=== PATIENT | male | born 1950 | race Caucasian/White ===

== ENCOUNTER → 2018-10-15 | Outpatient (REF) | payer MEDICARE, OTHER ==
[~2018-10-15] MED LIST: AMLODIPINE10 MG PO; AMLODIPINE5 MG OR; AMLODIPINE5 MG PO; CELEBREX200 MG OR; DIOVAN160 MG OR; ELAVIL10 MG PO; ENALAPR/HCTZ1 TA1 PO; ENALAPR/HCTZ1 TAB OR; ENALAPR/HCTZ1 TAB PO; ENALAPRIL MALEA20 MG PO; HUMULIN N1 ML SC; HYDROCHLORO25 MG/TAB PO; NEURONTIN300 MG PO; NOVOLIN SC; OMEPRAZOLE20 MG OR; PRILOSEC20 MG/CAP PO; SIMVASTATIN20 MG PO; TRAZODONE50 MG PO; VASERETIC1 TAB PO
[2018-10-15 09:39] LABS: HEMATOCRIT 47.7 % (39.0-50.0); IMMATURE GRANULOCYTES 0.7 % (0.0-5.0); MEAN CORPUSCULAR HGB 30.5 pG CALC (26.0-32.0); MEAN CORPUSCULAR HGB CONC 33.5 g/L CALC (32.0-36.0); NEUT# 5.25 thou/uL (1.82-7.42); RED BLOOD COUNT 5.24 mill/uL (4.70-6.10); RED CELL DISTRI WIDTH 12.5 % (11.5-15.5)
[2018-10-15 09:55] LABS: ALBUMIN 4.2 g/dL (3.2-5.0); ALKALINE PHOSPHATASE 123 u/l (38-126); ANION GAP 15 (6-22 (CALC)); BILIRUBIN, TOTAL 0.9 mg/dL (0.0-1.4); BUN 16 mg/dL (8-23); BUN/CREATININE RATIO 21 (12-20 (CALC)); C-REACTIVE PROTEIN 0.9 mg/dL (0-0.9); CALCULATED LDLCHOLESTEROL 102 mg/dL (62-129 (CALC)); CARBON DIOXIDE 29 mmol/l (22-30); CHLORIDE 95 mmol/l (95-108); CHOLESTEROL HDL RATIO 3.6 (<4.4 (CALC)); CREATININE 0.7 mg/dL (0.7-1.3); GFR > 60 ML/MIN (>=60 (CALC)); GFR FOR AFR.AMER. > 60 ML/MIN (>=60 (CALC)); HDL CHOLESTEROL 46 mg/dL (>=40); POTASSIUM 4.7 mmol/l (3.5-5.1); SGOT/AST 25 u/l (19-48); SODIUM 134 mmol/l (137-146); TOTAL CHOLESTEROL 166 mg/dl (0-199); TOTAL PROTEIN 6.9 g/dL (6.3-8.2); TRIGLYCERIDES REFLEX TO dLDL 91 mg/dl (30-149); VLDL CHOLESTROL 18 mg/dl (4-45 (CALC))
== END | disposition home or self-care (01) ==
LOC: LAB 09:08
PROVIDERS: ATTEND Internal Medicine Geriatric Medicine
DX: I10 Essential (primary) hypertension (principal); E78.5 Hyperlipidemia, unspecified; E11.9 Type 2 diabetes mellitus without complications; M06.4 Inflammatory polyarthropathy; Z79.899 Other long term (current) drug therapy

== ENCOUNTER 2022-07-20 19:53 | Inpatient (IN) | payer MEDICARE ==
[~2022-07-20] VITALS: Ht 165.1 cm; Wt 104.4 kg
[2022-07-20] VITALS (11 sets, daily range): BP systolic 112–166; BP diastolic 52–79
--- NOTE | 2022-07-20 19:55 | NUR ---
PT TO ROOM 9 FOR TRIAGE
[2022-07-20 20:36] LABS: BASO% 0.3 % (0-3); EOS% 0.2 % (0-8); IMMATURE GRANULOCYTES 0.3 % (0.0-5.0); LYMPH% 11.6 % (15-41); MEAN CELL VOLUME 92.6 fL CALC (80.0-100.0); MEAN CORPUSCULAR HGB 31.7 pG CALC (26.0-32.0); MEAN CORPUSCULAR HGB CONC 34.2 g/dL CAL (32.0-36.0); MONO% 6.9 % (2-13); NEUT# 8.33 thou/uL (1.82-7.42); NEUT% 80.7 % (42-76); RED BLOOD COUNT 4.07 mill/uL (4.70-6.10); RED CELL DISTRI WIDTH 12.8 % (11.5-15.5)
[2022-07-20 20:37] LABS: HEMATOCRIT 37.7 % (39.0-50.0); HEMOGLOBIN 12.9 g/dl (14.0-18.0)
[2022-07-20 20:47] LABS: ALBUMIN 3.9 g/dL (3.2-5.0); ALKALINE PHOSPHATASE 157 u/l (38-126); ANION GAP 12 (6-22 (CALC)); BILIRUBIN, TOTAL 0.5 mg/dL (0.0-1.4); BUN 28 mg/dL (8-23); BUN/CREATININE RATIO 29 (12-20 (CALC)); CARBON DIOXIDE 31 mmol/l (22-30); CHLORIDE 94 mmol/l (95-108); GFR FOR AFR.AMER. > 60 ML/MIN (>=60 (CALC)); GFR OTHER RACES > 60 ML/MIN (>=60 (CALC)); SGOT/AST 38 u/l (19-48); SODIUM 133 mmol/l (137-146); TOTAL PROTEIN 7.6 g/dL (6.3-8.2)
[2022-07-20 20:49] LABS: POTASSIUM 3.5 mmol/l (3.5-5.1)
[2022-07-20] MEDS ORDERED: SIMVASTATIN5 MG PO (21:28)
[2022-07-20] MEDS ORDERED: NORVASC5 M1 PO (21:37)
[2022-07-20] MEDS ORDERED: AMITRIPTYLINE H50 MG PO (21:37)
[2022-07-20] MEDS ORDERED: CYMBALTA60 MG PO (21:39)
[2022-07-20] MEDS ORDERED: SULFASALAZIN500 M1 PO (21:40)
[2022-07-20] MEDS ORDERED: HUMULIN 70/30 SC (21:40)
[2022-07-20] MEDS ORDERED: BAYER CHEWABLE81 MG PO (21:41)
[2022-07-20] MEDS ORDERED: CEFTRIAX/DEX1 GM IV (21:43)
[2022-07-20] MEDS ORDERED: DOXYCYCLINE50 MG (21:44)
[2022-07-21] VITALS (8 sets, daily range): BP systolic 131–164; BP diastolic 45–65
--- NOTE | 2022-07-21 | NUR ---
REPORT GIVEN TO KIA WEST, PT IN NAD UPON TRANSFER, PATIENT TX TO MS 265, UPON ARRIVAL TO MS, PT VOIDED AND URINE WAS COLLECTED SIGNED, DATED AND SENT TO LAB. MS NURSE AWARE.
--- NOTE | 2022-07-21 00:01 | NUR ---
PT ADMITTED AND AWAITING TRANSFER. PRECIOUS.
--- NOTE | 2022-07-21 00:22 | NUR ---
71 YR OLD WHITE MALE ADMITTED MEDS[facility] ROOM 268 PER WHEELCHAIR FROM ER. AMBULATED X1 ASSIST TO BATHROOM TO VOID THEN TO BED. BED WEIGHT OBTAINED. O2 CONT PER NC. WHEEZING BILAT. NO ACUTE RESP DISTRESS. SUPERVISOR TAPING SHOWS SINUS TACH. #22 RAC. IVF BEGAN ORDERED. HISTORY OBTAINED PER PT & ER REPORT. FALL PRECAUTIONS INITIATED. URINE SPEC SENT TO LAB.
[2022-07-21 01:14] LABS: URINE BILIRUBIN - DIPSTICK NEGATIVE (NEGATIVE); URINE BLOOD DIPSTICK NEGATIVE (NEGATIVE); URINE COLOR YELLOW; URINE GLUCOSE - DIPSTICK 100 mg/dL (NEGATIVE); URINE KETONE NEGATIVE (NEGATIVE); URINE LEUK ESTERASE NEGATIVE (NEGATIVE); URINE PROTEIN - DIPSTICK NEGATIVE (NEG-TRACE); URINE UROBILINOGEN - DIPSTICK 0.2 E.U./dL (0.2)
[2022-07-21 01:15] LABS: URINE NITRITE - DIPSTICK NEGATIVE (Negative)
--- NOTE | 2022-07-21 04:00 | NUR ---
TELE REPORT REC'D PER ANANDA COREY SR HR 96
--- NOTE | 2022-07-21 07:15 | NUR ---
PT IS SITTING UP IN BED, PT IS ON 4LNC. PT STATES HE DOES NOT WEAR AT HOME, BUT FEELS HE NEEDS IT AT THIS TIME. PT FOLLOWS COMMANDS, ANSWERS QUESTIONS APPROPRIATELY, PT ABLE TO AMBULATE AND IS AWARE TO CALL FOR ANY ASSISTANCE. PT HAS NO C/O PAIN. PT HAS IVF INFUSING. PT NEEDS HAVE BEEN ADDRESSED, WILL CONTINUE TO MONITOR.
--- NOTE | 2022-07-21 12:00 | NUR ---
PT IS SITTING UP IN CHAIR TALKING ON THE PHONE. PT HAS CONCERN OF HOME MEDS, AND WILL BE REASSESED. PT HAS NO C/O PAIN, IN GOOD SPIRITS. PT HAS CALL LIGHT NEAR AND WILL CALL IF IN NEED. ALL NEEDS AR BEING ADDRESSED.
--- NOTE | 2022-07-21 16:00 | NUR ---
PT IS SITTING UP INTO CHAIR, PT HAS FAMILY NEARBY, PT HAS NO COMPLAINTS AT THIS TIME, PT HAS NO CAHNGE TO ASSESSMENT. PT HAS CALL LIGHT NEAR AND ALL HIS NEEDS HAVE BEEN ADDRESSED. WILL CONTINUE TO MONITOR.
[2022-07-22 00:08] VITALS: BP 160/70
--- NOTE | 2022-07-22 05:13 | NUR ---
PT HAD AN UNEVENTFUL NIGHT. PT IS ALERT AND ORIENTED. PT IS AFEBRILE. PT DENIES PAIN. NO SIGNS AND SYMPTOMS OF DISTRESS NOTED. PT RECEIVED INSULIN FOR ELEVARTED BG. PT TOLERATED WELL. ALL SAFETY MEASURES ARE IN PLACE. CALL LIGHT AND PERSONAL BELONGINGS ARE WITHIN REACH. WILL CONTINUE TO MONITOR.
[2022-07-22 06:40] VITALS: BP 156/61
--- NOTE | 2022-07-22 07:00 | NUR ---
Report recieved from shift manager - pt stable - no s/s distress - call light in reach
[2022-07-22 09:57] LABS: BASO% 0.4 % (0-3); EOS% 0.6 % (0-8); HEMATOCRIT 37.1 % (39.0-50.0); HEMOGLOBIN 12.6 g/dl (14.0-18.0); IMMATURE GRANULOCYTES 0.5 % (0.0-5.0); LYMPH% 11.3 % (15-41); MEAN CELL VOLUME 92.8 fL CALC (80.0-100.0); MEAN CORPUSCULAR HGB 31.5 pG CALC (26.0-32.0); MONO% 9.2 % (2-13); NEUT# 7.84 thou/uL (1.82-7.42); RED CELL DISTRI WIDTH 12.9 % (11.5-15.5)
[2022-07-22 10:37] LABS: ALBUMIN 3.5 g/dL (3.2-5.0); ALKALINE PHOSPHATASE 166 u/l (38-126); ANION GAP 14 (6-22 (CALC)); BILIRUBIN, TOTAL 0.6 mg/dL (0.0-1.4); BUN 18 mg/dL (8-23); BUN/CREATININE RATIO 23 (12-20 (CALC)); CARBON DIOXIDE 29 mmol/l (22-30); CHLORIDE 98 mmol/l (95-108); CREATININE 0.8 mg/dL (0.7-1.3); GFR FOR AFR.AMER. > 60 ML/MIN (>=60 (CALC)); GFR OTHER RACES > 60 ML/MIN (>=60 (CALC)); POTASSIUM 3.8 mmol/l (3.5-5.1); SGOT/AST 30 u/l (19-48); SODIUM 137 mmol/l (137-146); TOTAL PROTEIN 6.7 g/dL (6.3-8.2)
[2022-07-22 10:55] VITALS: BP 162/64
--- NOTE | 2022-07-22 11:00 | NUR ---
Pt walking around room, says chair and bed is uncomfortable - c/o neck pain, got tylenol order and medicated per MD - no s/s distress - call light in reach
[2022-07-22 14:30] VITALS: BP 166/69
--- NOTE | 2022-07-22 16:00 | NUR ---
Pt resting in bed - denies any pain or needs at this time - no s/s distress - call light in reach
--- NOTE | 2022-07-22 16:25 | NUR ---
S: ANEL DUFFY is a 71 M who presents with SOB. He has a history of PNEUMONIA. All medications in patient's chart were reviewed. O: VS: BP <166/69>, P<94>, RR<18>,T<97.9> W <101 kg>, HT<65 IN>, Scr=<0.8>,CrCl= <80ml/min> A: Blood culture <is pending P: Patient is on ZOSYN 3.375 Q6H. Vancomycin ordered for pharmacy to dose. Start Vancomycin 1 GRAM IV Q8H. Vancomycin trough is drawn before the 4th dose on 07/23 1330. Vancomycin goal trough is between <10-20 mcg/ml>. Pharmacy will follow and or advise on antibiotics use as needed.
[2022-07-22 19:13] VITALS: BP 161/48
--- NOTE | 2022-07-22 20:00 | NUR ---
RECEIVED REPORT FROM DAY NURSE, PATIENT RESTING IN CHAIR HOOKED ON CONTINUOUS O2 @ 3LPM VIA NC, REMAINS ON TELEMETRY, LUNG SOUNDS WHEEZING NOTED, NON PRODUCTIVE COUGH, EXERTIONAL DYSPNEA NOTED, ACTIVE BOWEL SOUNDS, CALL LGHT IN REACHJ.
--- NOTE | 2022-07-23 00:30 | NUR ---
DUE ZOSYN GIVEN AT THIS TIME, PATIENT IN BED REMAINS ON O2 @ 3LPM VIA NC CALL LIGHT IN REACH.
[2022-07-23 03:16] VITALS: BP 159/37
--- NOTE | 2022-07-23 04:20 | NUR ---
PATIENT RESTING IN BED WITH EYES CLOSED, REMAINS ON O2 @ 3LPM VIA NC, NOT IN DISTRESS, CALL LIGHT IN REACH.
[2022-07-23 05:44] LABS: BASO% 0.7 % (0-3); EOS% 0.6 % (0-8); HEMATOCRIT 36.5 % (39.0-50.0); HEMOGLOBIN 12.3 g/dl (14.0-18.0); IMMATURE GRANULOCYTES 0.6 % (0.0-5.0); LYMPH% 13.3 % (15-41); MEAN CELL VOLUME 94.1 fL CALC (80.0-100.0); MEAN CORPUSCULAR HGB 31.7 pG CALC (26.0-32.0); MEAN CORPUSCULAR HGB CONC 33.7 g/dL CAL (32.0-36.0); MONO% 8.8 % (2-13); NEUT# 8.09 thou/uL (1.82-7.42); RED BLOOD COUNT 3.88 mill/uL (4.70-6.10); RED CELL DISTRI WIDTH 12.9 % (11.5-15.5)
[2022-07-23 06:03] LABS: ALBUMIN 3.6 g/dL (3.2-5.0); ALKALINE PHOSPHATASE 187 u/l (38-126); ANION GAP 9 (6-22 (CALC)); BILIRUBIN, TOTAL 0.6 mg/dL (0.0-1.4); BUN 17 mg/dL (8-23); BUN/CREATININE RATIO 21 (12-20 (CALC)); CARBON DIOXIDE 31 mmol/l (22-30); CHLORIDE 100 mmol/l (95-108); CREATININE 0.8 mg/dL (0.7-1.3); GFR FOR AFR.AMER. > 60 ML/MIN (>=60 (CALC)); GFR OTHER RACES > 60 ML/MIN (>=60 (CALC)); POTASSIUM 3.1 mmol/l (3.5-5.1); SODIUM 138 mmol/l (137-146); TOTAL PROTEIN 7.3 g/dL (6.3-8.2)
[2022-07-23 06:07] LABS: SGOT/AST 77 u/l (19-48)
--- NOTE | 2022-07-23 06:23 | NUR ---
pt is on 2L NC 92% SAT
[2022-07-23 06:41] VITALS: BP 155/69
--- NOTE | 2022-07-23 07:46 | NUR ---
0700 BEDSIDE REPORT RECEIVED FROM MAINE WALLIS. PT RESTING IN BED WITH EYES OPEN. NO COMPLAINTS VOICED. NO SIGNS OF DISTRESS NOTED. RESPIRATIONS EVEN AND UNLABORED. OXYGEN THERAPY @ 3L OH. PT UPDATED ON PLAN OF CARE, VERBALIZES UNDERSTANDING AND DENIES QUESTIONS. ALL PERSONAL ITEMS WITHIN REACH. SAFETY PRECAUTIONS IN PLACE.
[2022-07-23 10:20] VITALS: BP 154/53
[2022-07-23 10:24] VITALS: BP 123/39
[2022-07-23 16:13] VITALS: BP 154/54
[2022-07-23 19:26] VITALS: BP 174/60
--- NOTE | 2022-07-23 20:05 | NUR ---
PT SITTING ON RECLINER; A&O X3. EVEN AND UNLABORED RESPIRATIONS; WHEEZING ON UPPER LOBES, DIMINISHED LOWER LOBES UPON AUSCULTATION. O2 @ 3L VIA NASAL CANNULA IN PLACE. TELEMETRY IN PLACE. IV SITE HEALTHY AND PATENT. ACTIVE BOWEL SOUNDS X4 QUADRANTS. EDEMA +2 ON REKHA LOWER EXTREMITIES NOTED. SAFETY PRECAUTIONS IN PLACE WITH CALL LIGHT IN REACH.
[2022-07-24 00:35] VITALS: BP 156/71
--- NOTE | 2022-07-24 00:47 | NUR ---
PT RESTING ON BED. NO DISTRESS OR PAIN NOTED. HANGING SCHEDULED ABX AT THIS TIME. NO NEEDS AT THIS TIME. SAFETY PRECAUTIONS IN PLACE WITH CALL LIGHT IN REACH.
--- NOTE | 2022-07-24 02:59 | NUR ---
PT'S BS WAS 43 @ 0250; ADMINISTERED DEXTROSE 10% IV PER PROTOCOL. PT ASYMPTOMATIC, PT A&O X3. PT STATES: " THIS IS NOT THE FIRST TIME THAT THIS HAPPENS TO ME, I'M PERFECTLY FINE." PT EDUCATED ON LOW BS PROTOCOL, PT AGREED AND SHOWED UNDERSTANDING. OJ AND SNACK PROVIDED. WILL KEEP MONITORING. SAFETY PRECAUTIONS IN PLACE WITH CALL LIGHT IN REACH.
--- NOTE | 2022-07-24 03:20 | NUR ---
BS RECHECKED BY ALFREDO, NOW 168 AFTER ADMINISTRATION OF DEXTROSE 10%. SAFETY PRECAUTIONS IN PLACE WITH CALL LIGHT IN REACH.
--- NOTE | 2022-07-24 04:10 | NUR ---
PT RESTING ON BED WITH EYES CLOSED. NO DISTRESS OR PAIN NOTED. O2 @ 3L VIA NASAL CANNULA IN PLACE. IV SITE HEALTHY AND PATENT. NO NEEDS AT THIS TIME. SAFETY PRECAUTIONS IN PLACE WITH CALL LIGHT IN REACH.
[2022-07-24 05:06] LABS: BASO% 0.6 % (0-3); EOS% 0.5 % (0-8); HEMATOCRIT 36.4 % (39.0-50.0); HEMOGLOBIN 12.2 g/dl (14.0-18.0); IMMATURE GRANULOCYTES 0.8 % (0.0-5.0); LYMPH% 12.6 % (15-41); MEAN CELL VOLUME 94.5 fL CALC (80.0-100.0); MEAN CORPUSCULAR HGB 31.7 pG CALC (26.0-32.0); MEAN CORPUSCULAR HGB CONC 33.5 g/dL CAL (32.0-36.0); MONO% 9.9 % (2-13); NEUT# 8.37 thou/uL (1.82-7.42); NEUT% 75.6 % (42-76); RED BLOOD COUNT 3.85 mill/uL (4.70-6.10)
[2022-07-24 05:24] LABS: ALBUMIN 3.7 g/dL (3.2-5.0); ALKALINE PHOSPHATASE 192 u/l (38-126); ANION GAP 12 (6-22 (CALC)); BILIRUBIN, TOTAL 0.5 mg/dL (0.0-1.4); BUN 18 mg/dL (8-23); BUN/CREATININE RATIO 24 (12-20 (CALC)); CARBON DIOXIDE 32 mmol/l (22-30); CHLORIDE 97 mmol/l (95-108); CREATININE 0.8 mg/dL (0.7-1.3); GFR FOR AFR.AMER. > 60 ML/MIN (>=60 (CALC)); GFR OTHER RACES > 60 ML/MIN (>=60 (CALC)); POTASSIUM 3.2 mmol/l (3.5-5.1); SGOT/AST 56 u/l (19-48); SODIUM 138 mmol/l (137-146); TOTAL PROTEIN 7.3 g/dL (6.3-8.2)
[2022-07-24 06:50] VITALS: BP 175/78
--- NOTE | 2022-07-24 07:31 | NUR ---
0700 BEDSIDE REPORT RECEIVED FROM MARTIN MAYO. PT RESTING IN BED WITH EYES OPEN. NO COMPLAINTS VOCIED. RESPIRATIONS EVEN BUT SLIGHTLY LABORED ON EXERTION. OXYGEN THERAPY AT 3L NC. PT ADVISED TO CALL FOR ASSISTANCE BEFORE GETTING OUT OF BED, VERBALIZES UNDERSTANDING. PT UPDATED ON POC, VERBALIZES UNDERSTANDING AND ALL QUESTIONS ANSWERED. SAFETY PRECAUTIONS WITHIN REACH.
[2022-07-24 10:50] VITALS: BP 169/72
[2022-07-24] MEDS ORDERED: LASIX 40 MG TAB40 MG PO (12:09)
--- NOTE | 2022-07-24 14:39 | NUR ---
1400 PT HAD A 5 BEAT RUN OF VTACH PER MARTÍN NURSING COORDINATOR. PT RESTING IN RECLINER WATCHING TV WITH NO COMPLAINTS VOICED AND NO SIGNS OF DISTRESS. SAM, HOGSHEAD OPENER MADE AWARE AND NO NEW ORDERS RECEIVED, PT TO BE DISCHARGED HOME AND TO TAKE PO MAGNESIUM WHEN HE GETS HOME.
[2022-07-24 14:56] VITALS: BP 155/64
--- NOTE | 2022-07-24 17:52 | NUR ---
PT'S DASIA UNABLE TO GET IN CONTACT WITH OXYGEN [employer] FOR THEM TO BRING OXYGEN CONCENTRATOR TO HOME UPON DISCHARGE. SAM, VEHICLE OPERATOR MADE AWARE AND OKAY FOR PT TO STAY ONE MORE NIGHT IN ORDER TO GET OXYGEN AT HOME. PT/ UPDATED AND ALL QUESTIONS ANSWERED. PT WILL BE DISCHARGED HOME IN AM.
[2022-07-24 19:20] VITALS: BP 157/68
--- NOTE | 2022-07-24 20:05 | NUR ---
RECEIVED REPORT FROM DAYSHIFT NURSE. PT SITTING ON RECLINER; A&O X3. EVEN AND LABORED RESPIRATIONS WITH SOB ON EXERTION. O2 @ 3L VIA NASAL CANNULA IN PLACE. TELEMETRY IN PLACE WITH LAST READING SR-97. IV SITE HEALTHY AND PATENT. ACTIVE BOWEL SOUNDS X4 QUADRANTS. SAFETY PRECAUTIONS IN [place] WITH CALL LIGHT IN REACH.
--- NOTE | 2022-07-24 23:00 | NUR ---
PT C/O LOWER BACK PAIN, LEVEL 7/10; ADMINISTERED PAIN MED PER EMAR. SAFETY PRECAUTIONS IN PLACE WITH CALL LIGHT IN REACH.
--- NOTE | 2022-07-25 | NUR ---
PT RESTING ON RECLINER WITH EYES CLOSED. NO DISTRESS NOTED. PT DENIES PAIN AT THIS TIME. O2 @ 3L VIA NASAL CANNULA IN PLACE. NO NEEDS AT THIS TIME. SAFETY PRECAUTIONS IN PLACE WITH CALL LIGHT IN REACH.
[2022-07-25 00:48] VITALS: BP 160/71
[2022-07-25 05:07] VITALS: BP 151/62
--- NOTE | 2022-07-25 05:17 | NUR ---
Patient did not want to stand for weight this AM, stated he will weigh before breakfast. Will pass on to dayshift. Nurse notified.
--- NOTE | 2022-07-25 05:21 | NUR ---
PT RESTING ON BED, SEMI FOWLERS. NO DISTRESS NOTED. PT DENIES PAIN AT THIS TIME. PT REFUSED TO GET UP TO GET HIS WEIGHT ON STANDING SCALE AT THIS TIME, BUT AGREES TO DO IT BEFORE BREAKFAST. IV SITE HEALTHY AND PATENT, INFUSING SCHEDULED ABX. O2 @ 3L VIA NASAL CANNULA IN PLACE. SAFETY PRECAUTIONS IN PLACE WITH CALL LIGHT IN REACH.
[2022-07-25 06:55] VITALS: BP 173/80
--- NOTE | 2022-07-25 07:31 | NUR ---
0700 BEDSIDE REPORT RECEIVED FROM MARTIN MAYO. PT SITTING UP IN RECLINER. PT UPDATED ON POC, VERBALIZES UNDERSTANDING. OXYGEN THERAPY @ 3L NC. RESPIRATIONS EVEN AND SLIGHTLY LABORED WITH EXERTION. ALL PERSONAL ITEMS WITHIN REACH. SAFETY PRECAUTIONS IN PLACE.
--- NOTE | 2022-07-25 07:56 | NUR ---
0730 PTS BLOOD GLUCOSE 64, 120 OZ OF ORANGE JUICE PROVIDED. BLOOD GLUCOSE REASSESSED AND CURRENTLY 92. 0755 BREAKFAST AT BEDSIDE, WILL CONTINUE TO MONITOR.
[2022-07-25 10:26] VITALS: BP 136/55
--- NOTE | 2022-07-25 11:44 | NUR ---
IV REMOVED WITH TIP INTACT, NO IV RELATED COMPLICATIONS NOTED. TELE REMOVED. DC INSTRUCTIONS EXPLAINED TO PT/, BOTH VERBALIZE UNDERSTANDING AND DENY QUESTIONS. PRESCRIPTIONS SENT TO [facility], AND HOME MEDICATIONS DISCUSSED. EDUCATION PROVIDED ON CHF/PNA. UPON DC HOME, HOME OXYGEN PROVIDED BY [facility] WAS NOT WORKING EFFECTIVELY. SPOKE TO NATE AT [facility] AND MADE AWARE, ADVISED TO USE OXYGEN TANK FROM 262 AND CAR DELIVERER WILL BRING IN ANOTHER TANK TO BE GIVEN TO 262. PT DISCHARGED HOME WITH HH WITH ALL PERSONAL BELONGINGS VIA WC WITH OXYGEN AT 3L NC AT 1135.
== END 2022-07-25 11:33 | disposition home health service (06) | DRG 871 ==
LOC: ED 19:53 → ED-I 22:20 → ED 23:06 → MS2 23:07
PROVIDERS: Emergency Medicine; Internal Medicine; Nurse Practitioner Family; ADMIT Internal Medicine; ATTEND Internal Medicine
DX: A41.9 Sepsis, unspecified organism (principal); J18.9 Pneumonia, unspecified organism; J96.01 Acute respiratory failure with hypoxia; I50.32 Chronic diastolic (congestive) heart failure; R65.20 Severe sepsis without septic shock; I11.0 Hypertensive heart disease with heart failure; E11.9 Type 2 diabetes mellitus without complications; E78.5 Hyperlipidemia, unspecified; Z79.4 Long term (current) use of insulin; Z20.822 Contact with and (suspected) exposure to COVID-19
CPT/HCPCS: Q9967

== ENCOUNTER 2022-09-01 15:06 | Inpatient (IN) | payer MEDICARE ==
[~2022-09-01] VITALS: Ht 167.6 cm; Wt 90.4 kg
[2022-09-01] VITALS (15 sets, daily range): BP systolic 123–147; BP diastolic 44–76
[~2022-09-01 15:06] MED LIST changes: +AMITRIPTYLINE H50 MG PO; +BAYER CHEWABLE81 MG PO; +CEFTRIAX/DEX1 GM IV; +CYMBALTA60 MG PO; +DOXYCYCLINE50 MG; +HUMULIN 70/30 SC; +LASIX 40 MG TAB40 MG PO; +NORVASC5 M1 PO; +SIMVASTATIN5 MG PO; +SULFASALAZIN500 M1 PO
[2022-09-01 16:37] LABS: BASO% 0.4 % (0-3); EOS% 0.1 % (0-8); HEMATOCRIT 37.3 % (39.0-50.0); HEMOGLOBIN 12.2 g/dl (14.0-18.0); IMMATURE GRANULOCYTES 0.3 % (0.0-5.0); LYMPH% 6.9 % (15-41); MEAN CELL VOLUME 89.4 fL CALC (80.0-100.0); MEAN CORPUSCULAR HGB 29.3 pG CALC (26.0-32.0); MEAN CORPUSCULAR HGB CONC 32.7 g/dL CAL (32.0-36.0); MONO% 6.6 % (2-13); NEUT# 9.92 thou/uL (1.82-7.42); NEUT% 85.7 % (42-76); RED BLOOD COUNT 4.17 mill/uL (4.70-6.10); RED CELL DISTRI WIDTH 13.1 % (11.5-15.5)
[2022-09-01 16:44] LABS: ALBUMIN 3.9 g/dL (3.2-5.0); ALKALINE PHOSPHATASE 207 u/l (38-126); BILIRUBIN, TOTAL 0.4 mg/dL (0.2-1.3); BUN 25 mg/dL (8-23); BUN/CREATININE RATIO 27 (12-20 (CALC)); CARBON DIOXIDE 27 mmol/l (22-30); CHLORIDE 91 mmol/l (95-108); GFR FOR AFR.AMER. > 60 ML/MIN (>=60 (CALC)); GFR OTHER RACES > 60 ML/MIN (>=60 (CALC)); SGOT/AST 38 u/l (19-48); TOTAL PROTEIN 7.4 g/dL (6.3-8.2)
[2022-09-01 16:50] LABS: ANION GAP 13 (6-22 (CALC)); POTASSIUM 4.3 mmol/l (3.5-5.1); SODIUM 127 mmol/l (137-146)
[2022-09-01 17:59] LABS: URINE BILIRUBIN - DIPSTICK NEGATIVE (NEGATIVE); URINE BLOOD DIPSTICK NEGATIVE (NEGATIVE); URINE COLOR YELLOW; URINE GLUCOSE - DIPSTICK >=1000 mg/dL (NEGATIVE); URINE KETONE NEGATIVE (NEGATIVE); URINE LEUK ESTERASE NEGATIVE (NEGATIVE); URINE PH 5.5 (4.5-8.0); URINE PROTEIN - DIPSTICK NEGATIVE (NEG-TRACE); URINE SPECIFIC GRAVITY 1.025; URINE UROBILINOGEN - DIPSTICK 0.2 E.U./dL (0.2)
[2022-09-01 18:04] LABS: URINE NITRITE - DIPSTICK NEGATIVE (Negative)
[2022-09-01] MEDS ORDERED: SULFASALAZIN500 M1 PO (22:13)
[2022-09-02 05:16] VITALS: BP 146/56
[2022-09-02 06:29] VITALS: BP 152/54
[2022-09-02 07:48] LABS: INTERNATIONAL NORMALIZED RATIO 1.1 RATIO (0.7-1.3); PROTHROMBIN TIME 11.1 SECONDS (9.0-12.5)
[2022-09-02 10:09] VITALS: BP 149/49
[2022-09-02 10:10] VITALS: BP 149/49
[2022-09-02 14:23] VITALS: BP 135/58
[2022-09-03] VITALS (7 sets, daily range): BP systolic 136–156; BP diastolic 41–65
[2022-09-03 05:37] LABS: BASO% 0.7 % (0-3); EOS% 2.3 % (0-8); HEMATOCRIT 39.7 % (39.0-50.0); IMMATURE GRANULOCYTES 0.3 % (0.0-5.0); LYMPH% 11.1 % (15-41); MEAN CELL VOLUME 88.6 fL CALC (80.0-100.0); MEAN CORPUSCULAR HGB CONC 32.7 g/dL CAL (32.0-36.0); MONO% 8.7 % (2-13); NEUT# 8.97 thou/uL (1.82-7.42); NEUT% 76.9 % (42-76); RED BLOOD COUNT 4.48 mill/uL (4.70-6.10); RED CELL DISTRI WIDTH 13.1 % (11.5-15.5)
[2022-09-03 05:58] LABS: ALKALINE PHOSPHATASE 162 u/l (38-126); BILIRUBIN, TOTAL 0.4 mg/dL (0.2-1.3); BUN 24 mg/dL (8-23); BUN/CREATININE RATIO 27 (12-20 (CALC)); CARBON DIOXIDE 31 mmol/l (22-30); CHLORIDE 93 mmol/l (95-108); CREATININE 0.9 mg/dL (0.7-1.3); GFR FOR AFR.AMER. > 60 ML/MIN (>=60 (CALC)); GFR OTHER RACES > 60 ML/MIN (>=60 (CALC)); MAGNESIUM 1.6 mg/dL (1.6-2.3); SGOT/AST 27 u/l (19-48); SODIUM 133 mmol/l (137-146); TOTAL PROTEIN 7.7 g/dL (6.3-8.2)
[2022-09-03 06:26] LABS: ANION GAP 12 (6-22 (CALC)); POTASSIUM 3.4 mmol/l (3.5-5.1)
[2022-09-04 04:47] VITALS: BP 132/50
[2022-09-04 06:11] LABS: BASO% 0.6 % (0-3); EOS% 1.8 % (0-8); HEMATOCRIT 38.3 % (39.0-50.0); HEMOGLOBIN 12.3 g/dl (14.0-18.0); MEAN CELL VOLUME 88.2 fL CALC (80.0-100.0); MEAN CORPUSCULAR HGB 28.3 pG CALC (26.0-32.0); MEAN CORPUSCULAR HGB CONC 32.1 g/dL CAL (32.0-36.0); MONO% 8.5 % (2-13); NEUT# 7.77 thou/uL (1.82-7.42); NEUT% 77.1 % (42-76); RED BLOOD COUNT 4.34 mill/uL (4.70-6.10); RED CELL DISTRI WIDTH 12.9 % (11.5-15.5)
[2022-09-04 06:30] LABS: ALBUMIN 3.7 g/dL (3.2-5.0); ALKALINE PHOSPHATASE 146 u/l (38-126); ANION GAP 10 (6-22 (CALC)); BILIRUBIN, TOTAL 0.3 mg/dL (0.2-1.3); BUN 24 mg/dL (8-23); BUN/CREATININE RATIO 29 (12-20 (CALC)); CARBON DIOXIDE 36 mmol/l (22-30); CHLORIDE 92 mmol/l (95-108); CREATININE 0.8 mg/dL (0.7-1.3); GFR FOR AFR.AMER. > 60 ML/MIN (>=60 (CALC)); GFR OTHER RACES > 60 ML/MIN (>=60 (CALC)); MAGNESIUM 1.5 mg/dL (1.6-2.3); POTASSIUM 3.1 mmol/l (3.5-5.1); SGOT/AST 22 u/l (19-48); SODIUM 134 mmol/l (137-146); TOTAL PROTEIN 7.1 g/dL (6.3-8.2)
[2022-09-04 07:18] VITALS: BP 139/58
[2022-09-04 11:01] VITALS: BP 131/61
[2022-09-04 15:31] VITALS: BP 153/69
[2022-09-04 19:59] VITALS: BP 153/63
[2022-09-04 23:52] VITALS: BP 179/76
[2022-09-05] VITALS (7 sets, daily range): BP systolic 139–148; BP diastolic 51–67
[2022-09-05 05:21] LABS: BASO% 0.6 % (0-3); EOS% 1.5 % (0-8); HEMATOCRIT 39.1 % (39.0-50.0); HEMOGLOBIN 12.8 g/dl (14.0-18.0); IMMATURE GRANULOCYTES 0.3 % (0.0-5.0); LYMPH% 12.2 % (15-41); MEAN CELL VOLUME 87.3 fL CALC (80.0-100.0); MEAN CORPUSCULAR HGB 28.6 pG CALC (26.0-32.0); MEAN CORPUSCULAR HGB CONC 32.7 g/dL CAL (32.0-36.0); MONO% 10.5 % (2-13); NEUT# 7.89 thou/uL (1.82-7.42); NEUT% 74.9 % (42-76); RED BLOOD COUNT 4.48 mill/uL (4.70-6.10); RED CELL DISTRI WIDTH 12.7 % (11.5-15.5)
[2022-09-05 05:43] LABS: ALBUMIN 3.6 g/dL (3.2-5.0); ALKALINE PHOSPHATASE 153 u/l (38-126); ANION GAP 12 (6-22 (CALC)); BILIRUBIN, TOTAL 0.2 mg/dL (0.2-1.3); BUN 28 mg/dL (8-23); BUN/CREATININE RATIO 32 (12-20 (CALC)); CARBON DIOXIDE 36 mmol/l (22-30); CHLORIDE 88 mmol/l (95-108); CREATININE 0.9 mg/dL (0.7-1.3); GFR FOR AFR.AMER. > 60 ML/MIN (>=60 (CALC)); GFR OTHER RACES > 60 ML/MIN (>=60 (CALC)); MAGNESIUM 1.7 mg/dL (1.6-2.3); POTASSIUM 3.5 mmol/l (3.5-5.1); SGOT/AST 18 u/l (19-48); SODIUM 132 mmol/l (137-146); TOTAL PROTEIN 6.9 g/dL (6.3-8.2)
[2022-09-06] VITALS (7 sets, daily range): BP systolic 124–149; BP diastolic 54–57
[2022-09-06 05:20] LABS: BASO% 0.7 % (0-3); EOS% 1.5 % (0-8); HEMATOCRIT 39.9 % (39.0-50.0); HEMOGLOBIN 13.3 g/dl (14.0-18.0); IMMATURE GRANULOCYTES 0.8 % (0.0-5.0); LYMPH% 14.3 % (15-41); MEAN CELL VOLUME 86.9 fL CALC (80.0-100.0); MEAN CORPUSCULAR HGB CONC 33.3 g/dL CAL (32.0-36.0); MONO% 10.6 % (2-13); NEUT# 7.23 thou/uL (1.82-7.42); NEUT% 72.1 % (42-76); RED BLOOD COUNT 4.59 mill/uL (4.70-6.10); RED CELL DISTRI WIDTH 12.6 % (11.5-15.5)
[2022-09-06 05:50] LABS: ALBUMIN 3.6 g/dL (3.2-5.0); ALKALINE PHOSPHATASE 141 u/l (38-126); ANION GAP 11 (6-22 (CALC)); BILIRUBIN, TOTAL 0.2 mg/dL (0.2-1.3); BUN 30 mg/dL (8-23); BUN/CREATININE RATIO 38 (12-20 (CALC)); CARBON DIOXIDE 38 mmol/l (22-30); CHLORIDE 86 mmol/l (95-108); CREATININE 0.8 mg/dL (0.7-1.3); GFR FOR AFR.AMER. > 60 ML/MIN (>=60 (CALC)); GFR OTHER RACES > 60 ML/MIN (>=60 (CALC)); MAGNESIUM 1.9 mg/dL (1.6-2.3); POTASSIUM 3.5 mmol/l (3.5-5.1); SGOT/AST 20 u/l (19-48); SODIUM 132 mmol/l (137-146); TOTAL PROTEIN 6.9 g/dL (6.3-8.2)
[2022-09-07] VITALS (7 sets, daily range): BP systolic 127–158; BP diastolic 35–63
[2022-09-07 06:07] LABS: BASO% 0.7 % (0-3); EOS% 1.6 % (0-8); HEMATOCRIT 42.2 % (39.0-50.0); HEMOGLOBIN 14.1 g/dl (14.0-18.0); IMMATURE GRANULOCYTES 0.5 % (0.0-5.0); MEAN CELL VOLUME 86.1 fL CALC (80.0-100.0); MEAN CORPUSCULAR HGB 28.8 pG CALC (26.0-32.0); MEAN CORPUSCULAR HGB CONC 33.4 g/dL CAL (32.0-36.0); MONO% 9.5 % (2-13); NEUT# 7.42 thou/uL (1.82-7.42); NEUT% 69.7 % (42-76); RED BLOOD COUNT 4.9 mill/uL (4.70-6.10); RED CELL DISTRI WIDTH 12.5 % (11.5-15.5)
[2022-09-07 06:17] LABS: BUN 37 mg/dL (8-23); BUN/CREATININE RATIO 39 (12-20 (CALC)); CHLORIDE 84 mmol/l (95-108); CREATININE 0.9 mg/dL (0.7-1.3); GFR FOR AFR.AMER. > 60 ML/MIN (>=60 (CALC)); GFR OTHER RACES > 60 ML/MIN (>=60 (CALC)); MAGNESIUM 1.7 mg/dL (1.6-2.3); POTASSIUM 3.2 mmol/l (3.5-5.1); SODIUM 133 mmol/l (137-146)
[2022-09-07 06:31] LABS: ANION GAP 11 (6-22 (CALC)); CARBON DIOXIDE 41 mmol/l (22-30)
[2022-09-07] MEDS ORDERED: LASIX 40 MG TAB40 MG PO (11:19)
[2022-09-07] MEDS ORDERED: KLOR-CON M2020 MEQ PO (11:20)
== END 2022-09-07 11:55 | disposition home health service (06) | DRG 291 ==
LOC: ED 15:06 → ED-I 16:27 → ED 18:36 → MS2 18:37
PROVIDERS: Family Medicine; Internal Medicine; Nurse Practitioner Adult Health; Nurse Practitioner Family; ADMIT Internal Medicine; ATTEND Internal Medicine
PROC: 0W9B3ZZ Drainage of Left Pleural Cavity, Percutaneous Approach (ICD-10-PCS; principal; 2022-09-02)
DX: I11.0 Hypertensive heart disease with heart failure (principal); I50.33 Acute on chronic diastolic (congestive) heart failure; J18.9 Pneumonia, unspecified organism; J96.20 Acute and chronic respiratory failure, unspecified whether with hypoxia or hypercapnia; J91.8 Pleural effusion in other conditions classified elsewhere; I47.20 Ventricular tachycardia, unspecified; E11.9 Type 2 diabetes mellitus without complications; E78.5 Hyperlipidemia, unspecified; G47.33 Obstructive sleep apnea (adult) (pediatric); Z99.81 Dependence on supplemental oxygen; Z79.4 Long term (current) use of insulin; Z20.822 Contact with and (suspected) exposure to COVID-19
CPT/HCPCS: J1650; J3475

== ENCOUNTER 2024-05-09 20:50 | Emergency (ER) | payer MEDICARE ==
[~2024-05-09] VITALS: Ht 167.6 cm; Wt 98.0 kg
[~2024-05-09 20:50] MED LIST changes: +KLOR-CON M2020 MEQ PO
[2024-05-09 21:54] LABS: BASO% 0.3 % (0-3); EOS% 0.1 % (0-8); HEMATOCRIT 48.3 % (39.0-50.0); HEMOGLOBIN 14.9 g/dl (14.0-18.0); IMMATURE GRANULOCYTES 0.3 % (0.0-5.0); LYMPH% 6.6 % (15-41); MEAN CORPUSCULAR HGB 29.7 pG CALC (26.0-32.0); MEAN CORPUSCULAR HGB CONC 30.8 g/dL CAL (32.0-36.0); MONO% 6.6 % (2-13); NEUT# 10.96 thou/uL (1.82-7.42); NEUT% 86.1 % (42-76); RED BLOOD COUNT 5.01 mill/uL (4.70-6.10); RED CELL DISTRI WIDTH 14.3 % (11.5-15.5)
[2024-05-09 21:56] LABS: MEAN CELL VOLUME 96.4 fL CALC (80.0-100.0)
[2024-05-09 22:05] LABS: ALBUMIN 4.3 g/dL (3.2-5.0); BILIRUBIN, TOTAL 1.2 mg/dL (0.2-1.3); CREATININE 1.4 mg/dL (0.7-1.3)
[2024-05-09 22:07] LABS: MAGNESIUM 2.3 mg/dL (1.6-2.3); POTASSIUM 5.3 mmol/l (3.5-5.1)
[2024-05-09 22:16] LABS: D-DIMER 2.25 mg/L (0.19-0.60)
[2024-05-09 22:20] LABS: ACT PARTIAL THROMBO TIME 18.5 SECONDS (20.0-32.5); INTERNATIONAL NORMALIZED RATIO 1.2 RATIO (0.7-1.3); PROTHROMBIN TIME 11.5 SECONDS (9.0-12.5)
[2024-05-09] MEDS ORDERED: CARVEDILOL3.125 MG PO (22:29)
[2024-05-09 22:30] VITALS: BP 130/50
[2024-05-09] MEDS ORDERED: [UNRECOGNIZED DRUG - OTHER] TOP (22:32)
[2024-05-09 23:06] VITALS: BP 149/58
[2024-05-09] MEDS ORDERED: LASIX 40 MG TAB40 MG PO (23:11)
[2024-05-09] MEDS ORDERED: INSULIN DEGL SC (23:13)
[2024-05-09] MEDS ORDERED: ASPIRIN 81 MG/TAB PO ONE (23:15)
[2024-05-09] MEDS ORDERED: HUMULIN R SC (23:15)
[2024-05-09] MEDS ORDERED: LEVOTHYROXIN88 MC1 PO (23:16)
[2024-05-09] MEDS ORDERED: CLARITIN10 M1 PO (23:17)
[2024-05-09] MEDS ORDERED: LISINOPRIL10 MG PO (23:17)
[2024-05-09] MEDS ORDERED: OMEPRAZOLE DR40 MG PO (23:19)
[2024-05-09] MEDS ORDERED: POT CHLORIDE20 ME2 PO (23:19)
[2024-05-09] MEDS ORDERED: SIMVASTATIN80 MG PO (23:20)
[2024-05-09] MEDS ORDERED: ALDACTONE25 MG PO (23:21)
[2024-05-09] MEDS ORDERED: VITAMIN C500 M6 PO (23:22)
[2024-05-09] MEDS ORDERED: SULFASALAZIN500 M4 PO (23:22)
[2024-05-09] MEDS ORDERED: VITAMIN E400 UNIT PO (23:23)
[2024-05-09 23:27] LABS: URINE BILIRUBIN - DIPSTICK Negative (NEGATIVE); URINE BLOOD DIPSTICK Negative (NEGATIVE); URINE GLUCOSE - DIPSTICK Negative (NEGATIVE); URINE KETONE Negative (NEGATIVE); URINE LEUK ESTERASE Negative (NEGATIVE); URINE NITRITE - DIPSTICK Negative (Negative); URINE PH 5.5 (4.5-8.0); URINE PROTEIN - DIPSTICK 100 mg/dL (NEG-TRACE); URINE SPECIFIC GRAVITY >=1.030
[2024-05-09 23:31] VITALS: BP 138/59
[2024-05-09 23:35] LABS: URINE COLOR Yellow
[2024-05-09] MEDS ORDERED: Heparin SODIUM (Porcine) 500 ML IV ONE (23:45)
[2024-05-09] MEDS ORDERED: Heparin SODIUM (Porcine) 5,000 UNITS/ML SDV IV ONE (23:45)
[2024-05-09 23:53] LABS: URINE EPITHELIAL CELLS MODERATE EPI/hpf (0-FEW)
[2024-05-09 23:54] LABS: URINE BACTERIA FEW hpf; URINE HYALINE CAST FEW lpf (NONE-RARE); URINE MUCUS FEW hpf (NONE-FEW)
[2024-05-10] VITALS: BP 140/61
[2024-05-10 00:31] VITALS: BP 144/53
[2024-05-10 01:00] VITALS: BP 142/61
[2024-05-10 01:25] VITALS: BP 142/61
== END 2024-05-10 01:26 | disposition short-term general hospital (02) ==
LOC: ED 20:50
PROVIDERS: Family Medicine
DX: R55 Syncope and collapse (principal); R79.89 Other specified abnormal findings of blood chemistry; S00.83XA Contusion of other part of head, initial encounter; S51.812A Laceration without foreign body of left forearm, initial encounter; S81.812A Laceration without foreign body, left lower leg, initial encounter; I11.0 Hypertensive heart disease with heart failure; I50.32 Chronic diastolic (congestive) heart failure; E11.9 Type 2 diabetes mellitus without complications; G47.30 Sleep apnea, unspecified; Z79.4 Long term (current) use of insulin; W19.XXXA Unspecified fall, initial encounter; Z99.81 Dependence on supplemental oxygen
CPT/HCPCS: J1644